=== PATIENT | male | born 1965 | race Caucasian/White ===

== ENCOUNTER 2020-03-31 17:09 | Emergency (ER) | payer OTHER ==
[~2020-03-31] VITALS: Ht 180.3 cm; Wt 104.3 kg
[2020-03-31] MEDS ORDERED: ZOFRAN4 MG PO (18:59)
[2020-03-31] MEDS ORDERED: FLOMAX0.4 MG PO (18:59)
== END 2020-03-31 19:15 | disposition home or self-care (01) ==
LOC: ED 17:09
DX: N13.2 Hydronephrosis with renal and ureteral calculous obstruction (principal)
CPT/HCPCS: 74176; 81001; 99284-25